=== PATIENT | male | born 1960 | race Caucasian/White ===

== ENCOUNTER → 2025-05-16 09:21 | Outpatient (BNVA) | payer MEDICARE, OTHER, SELFPAY | PROVIDERS: Family Provider Family Medicine; PCP Family Medicine; Visit Provider Orthopaedic Surgery | DX: Z01.818 Encounter for other preprocedural examination (principal); M48.062 Spinal stenosis, lumbar region with neurogenic claudication | CPT/HCPCS: 36415; 72110; 80053; 81001; 85025; 99204 ==

== ENCOUNTER → 2025-05-25 16:17 | Outpatient (BNVA) | payer MEDICARE, OTHER, SELFPAY | PROVIDERS: Family Provider Family Medicine; PCP Family Medicine; Visit Provider Family Medicine | DX: Z01.818 Encounter for other preprocedural examination (principal); M54.59 Other low back pain; Z96.698 Presence of other orthopedic joint implants; Z98.890 Other specified postprocedural states; C64.2 Malignant neoplasm of left kidney, except renal pelvis; Z79.61 Long term (current) use of immunomodulator; R30.0 Dysuria | CPT/HCPCS: 81000; 87086 ==

== ENCOUNTER 2025-05-29 08:15 | Day surgery (SDC) | payer MEDICARE, OTHER, SELFPAY ==
[2025-05-29] VITALS (10 sets, daily range): BP systolic 150–178; BP diastolic 80–102; PULSE 80–97; RESP 15–25; TEMP 36.2–36.5; O2SAT 93–100; BMI 38.0
--- NOTE | 2025-05-29 09:09 | ANES.PREANE2 ---
Pre-Anesthetic Assessment Height/Weight: Height 6 ft Weight 280 lb Temp Pulse Resp BP Pulse Ox O2 Del Method 97.1 F L 93 18 178/102 99 Room Air 05/29/25 08:39 05/29/25 08:39 05/29/25 08:39 05/29/25 08:39 05/29/25 08:39 05/29/25 08:39 Preop Diagnosis: Lumbar stenosis neurogenic claudication Operation Date: 05/29/25 10:20 Proposed Procedures p Lumbar Spine Decompression(Not Applicable) - Oc Chapman, DO Was Beta Opla taken within 24 hours: N/A Was Clonidine taken within 24 hours: N/A Last intake: Intake Last Liquid Date 05/28/25 Last Liquid Time 21:00 Last Solid Date 05/28/25 Last Solid Time 21:00 Social No alcohol and No tobacco Exam alert, oriented x 3, clear to auscultation bilaterally and regular rate & rhythm Airway Submandibular: within normal limits Cervical ROM: within normal limits Mallampati: Class III Dentition: false Anesthetic Plan ASA status: 3 Anesthesia: General Other: No prior issues with anesthesia NPO since yesterday evening Patient had kidney cancer, s/p nephrectomy on the left 3 months ago. Currently receiving immunotherapy BRODIE, wears CPAP nightly Denies any hypertension, preop BP 178/102, attest that the nerves Labs reviewed from 05/16/2025 and acceptable for procedure today Plan for GETA Medications/Allergies Home Medications ?Medication ?Instructions ?Recorded ?Confirmed ?Last Taken ?Type colestipol 1 gram tablet 1 g PO BID #14 tabs 05/24/25 05/25/25 05/28/25 08:00 Rx finasteride 5 mg tablet 5 mg PO DAILY 05/24/25 05/25/25 05/28/25 08:00 History trazodone 50 mg tablet 50 mg PO DAILY 05/24/25 05/25/25 05/28/25 08:00 History Allergies Allergy/AdvReac Type Severity Reaction Status Date / Time Sulfa (Sulfonamide Allergy rash Verified 05/29/25 08:36 Antibiotics) alpha gal Allergy ADR-Nausea Uncoded 05/29/25 08:36 Current Medications Generic Name Dose Route Start Last Admin Trade Name Freq PRN Reason Stop Dose Admin Sodium Chloride 1,000 mls @ 30 mls/hr 05/29/25 08:30 05/29/25 08:51 Sodium Chloride 0.9% IV 05/30/25 08:29 30 mls/hr .Q24H LAVINIA Administration PFSH Anesthesia Social History Smoking and tobacco/nicotine status: never used tobacco/nicotine
--- NOTE | 2025-05-29 09:18 | W.PM.OPSUD ---
Surgery/Procedure H&P Update DATE OF PROCEDURE: May 29, 2025 DATE H&P PERFORMED: 06/16/25 H&P UPDATE INFORMATION: I have reviewed H&P completed within last 30 days, I have examined patient prior to procedure and No changes to prior documentation PREOP DIAGNOSIS: Lumbar stenosis neurogenic claudication PLANNED PROCEDURE: Operation Date: 05/29/25 10:20 Proposed Procedures p Lumbar Spine Decompression(Not Applicable) - Oc Chapman DO
[2025-05-29] MEDS: ceFAZolin 2,000 mg SDV 2000 MG IVP (09:55)
[2025-05-29] MEDS: lidocaine-epi 1% PF 1:200,000 30 mL SDV INJECTION (10:22)
--- NOTE | 2025-05-29 11:38 | P.OP_ITS ---
Operative Report Date of procedure: May 29, 2025 Pre-op diagnosis: Lumbar stenosis neurogenic claudication Post-op diagnosis: same Procedure done: 1. L3/4 laminectomy with partial facetectomy 2. L4/5 laminectomy partial facetectomy Surgeon: Oc Chapman DO Estimated blood loss (mL): 10 Procedure: 1. L3/4 laminectomy with partial facetectomy 2. L4/5 laminectomy partial facetectomy Patient is brought to the operative suite. After undergoing anesthesia they are placed in the prone position. All areas of impingement are well padded. Patient is then prepped and draped in the normal sterile fashion. A skin incision is made over the L3/4 level. This is confirmed under c-arm guidance. A series of dilators are passed and the tubular retractor is docked on the L3 lamina. A bovie is used to clear the soft tissue off the lamina and the L 3/4 facet joint. A high speed evelyn is then used to perform the laminectomy and take down the medial aspect of the L 3/4 facet joint. A kerrison rongeure was then used to take down the remaining lamina and smooth the edge of the laminectomy up to the point where the ligamentum flavum attaches. Attention was then brought to the medial aspect of the facet joint. The remaining medial aspect of the superior and inferior aspect of the facet joint were taken down with the kerrison from the pedicle of L3 to L 4. The facet joint had significant hypertrophy. Attention was then brought to the Ligamentum Flavum. The ligament was taken down from the lamina of L3 to L4 and out medially to the remaining facet joint. The ligament was thick. The dura was then exposed. The dura was in good repair. The L3 nerve was then traced with a curette out the L3/4 foramen and found to be adequately decompressed. The L4 nerve was traced with a curette around the L4 pedicle. The lateral recess was opened with a kerrison helping to further d ecompress the L4 nerve. Wound is then irrigated copiously with saline and surgiflo is used to stop any bleeding. The tubular retractor is removed A skin incision is made over the L4/5 level. This is confirmed under c-arm guidance. A series of dilators are passed and the tubular retractor is docked on the L4 lamina. A bovie is used to clear the soft tissue off the lamina and the L4/5 facet joint. A high speed evelyn is then used to perform the laminectomy and take down the medial aspect of the L 4/5 facet joint. A kerrison rongeure was then used to take down the remaining lamina and smooth the edge of the laminectomy up to the point where the ligamentum flavum attaches. Attention was then brought to the medial aspect of the facet joint. The remaining medial aspect of the superior and inferior aspect of the facet joint were taken down with the kerrison from the pedicle of L4 to L 5. The facet joint had significant hypertrophy. Attention was then brought to the Ligamentum Flavum. The ligament was taken down from the lamina of L4 to L5 and out medially to the remaining facet joint. The ligament was thick. The dura was then exposed. The dura was in good repair. The L4 nerve was then traced with a curette out the L4/5 foramen and found to be adequately decompressed. The L5 nerve was traced with a curette around the L5 pedicle. The lateral recess was opened with a kerrison helping to further decompress the L5 nerve. Wound is then irrigated copiously with saline and surgiflo is used to stop any bleeding. The tubular retractor is removed and the wound is closed with vicryl and monocryl suture. Steri strips were applied. A sterile dressing is then placed. Patient was then placed in the supine position and transferred to the PACU in stable condition.
[2025-05-29] MEDS: HYDROcodone-acetaminophen 5-325 mg Tablet 1 TAB PO (11:58)
--- NOTE | 2025-05-29 12:37 | ANE.PACU2 ---
Inpatient post-anesthesia follow up: Airway intact: Yes Vital signs: Temperature 97.4 F Pulse Rate 90 Respiratory Rate 18 Blood Pressure 163/80 Pulse Oximetry 97 Oxygen Delivery Me thod Room Air Oxygen Flow Rate Fraction of Inspir ed Oxygen Hydration adequate: Yes Nausea and vomiting: No Pain level: 1 Mental status: Baseline
--- NOTE | 2025-05-29 12:49 | XR_ITS ---
WS: [id number] Lumbar spine, C-arm fluoroscopy views, 05/29/2025 Clinical Data: or pic Comparison: Lumbar spine, 05/16/2025 Findings: Dr. Chapman performed a lumbar decompression. XR/XR lumbar spine 1V [id number] Impression: Lumbar decompression.
== END 2025-05-29 12:37 | disposition home or self-care (01) ==
PROVIDERS: Family Provider Family Medicine; PCP Family Medicine; Visit Provider Orthopaedic Surgery
PROC: (CPT 63005; principal; 2025-05-29 10:10)
DX: M48.062 Spinal stenosis, lumbar region with neurogenic claudication (principal); G47.33 Obstructive sleep apnea (adult) (pediatric); Z99.89 Dependence on other enabling machines and devices; Z85.528 Personal history of other malignant neoplasm of kidney; I10 Essential (primary) hypertension; Z91.014 Allergy to mammalian meats
CPT/HCPCS: 63047; 63048; 72020; 76000; J0690; J2250; J2405; J2704; J3010; J3490; J7030; J9999

== ENCOUNTER → 2025-06-13 14:30 | Outpatient (BNVA) | payer MEDICARE, OTHER, SELFPAY | PROVIDERS: Family Provider Family Medicine; PCP Family Medicine; Visit Provider Orthopaedic Surgery | DX: Z98.890 Other specified postprocedural states (principal) | CPT/HCPCS: 99024 ==